=== PATIENT | male | born 2000 | race Caucasian/White ===

== ENCOUNTER 2018-11-03 15:59 | Emergency (ER) | payer SELFPAY ==
[2018-11-03] MEDS ORDERED: TETRACAINE HCL 0.5% OPHTH SOL 1 DROP ONE (17:14)
--- NOTE | 2018-11-03 17:26 | ED.PDOC ---
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 Timing/Duration: this morning Severity: moderate EENT Location: eye (R), eye (L) Prearrival Treatment: no prearrival treatment Presenting Symptoms: see hpi Improving Factors: nothing Worsening Factors: nothing Associated Symptoms: other - see hpi Home Medications: Ambulatory Orders Acetaminophen W/ Codeine [Tylenol/Codeine #4 300-60 mg] 1 ea PO Q4HR PRN #10 tab 11/03/18 Ciprofloxacin HCl (Ophth) [Ciprofloxacin HCl] 2 drop OP TID 7 Days #1 bottle 11/03/18 Review of Systems - Review of Systems EENTM: States: see HPI, eye pain All other Systems: Reviewed and Negative, No Change from Baseline Past Medical History (General) - Patient Medical History Hx Seizures: No Hx Asthma: No Surgical History: no surgical history - Vaccination History Immunizations Up to Date: Yes - Social History Hx Chewing Tobacco Use: No Hx Alcohol Use: No Hx Substance Use: No Hx Substance Use Treatment: No Hx Physical Abuse: No Hx Emotional Abuse: No Family Medical History - Family History Father Family History: Unknown Physical Exam - Physical Exam General Appearance: Alert, Comfortable, No apparent distress Eye Exam: bilateral other - bilateral redness;VA-20/30 OS;20/30 OD;positive fluorescien uptake both eyes Ear Exam: bilateral ear: auricle normal, canal normal, TM normal Nasal Exam: normal inspection Throat Exam: normal mouth inspection Neck: normal inspection Cardiovascular/Respiratory: regular rate, rhythm, normal peripheral pulses, normal breath sounds Abdominal Exam: non-tender Neurologic: alert Skin Exam: normal color Departure - Departure Clinical Impression: Corneal abrasion of both eyes Qualifiers: Encounter type: initial encounter Qualified Code(s): S05.01XA - Injury of conjunctiva and corneal abrasion without foreign body, right eye, initial encounter; S05.02XA - Injury of conjunctiva and corneal abrasion without foreign body, left eye, initial encounter Time of Disposition: 17:31 Disposition: Discharge to Home or Self Care Condition: Fair Departure Forms: ED Discharge - Pt. Copy, Patient Portal Self Enrollment Prescriptions: Acetaminophen W/ Codeine [Tylenol/Codeine #4 300-60 mg] 1 ea PO Q4HR PRN #10 tab PRN Reason: Pain Ciprofloxacin HCl (Ophth) [Ciprofloxacin HCl] 2 drop OP TID 7 Days #1 bottle Home Medications: Ambulatory Orders Acetaminophen W/ Codeine [Tylenol/Codeine #4 300-60 mg] 1 ea PO Q4HR PRN #10 tab 11/03/18 Ciprofloxacin HCl (Ophth) [Ciprofloxacin HCl] 2 drop OP TID 7 Days #1 bottle 11/03/18 Additional Instructions: Return to emergency room as needed
[2018-11-03 18:02] VITALS: BP 122/66; TEMP 98.2; O2SAT 98
== END 2018-11-03 17:55 | disposition home or self-care (01) ==
LOC: ER 15:59
DX: S05.01XA Injury of conjunctiva and corneal abrasion without foreign body, right eye, initial encounter (principal); S05.02XA Injury of conjunctiva and corneal abrasion without foreign body, left eye, initial encounter; X58.XXXA Exposure to other specified factors, initial encounter